=== PATIENT | male | born 1985 | race Caucasian/White ===

== ENCOUNTER → 2017-10-07 | Outpatient (REF) ==
[~2017-10-07] MED LIST: CEPHALEXIN250 M1 PO; CIPRO 500MG TA500 MG PO; NO HOME MEDICATIONS; NORCO 325 MG-51 TAB PO; TYLENOL 325MG325 MG PO
== END ==
LOC: ZLAB.WCH 16:10
DX: Z01.89 Encounter for other specified special examinations (principal)